=== PATIENT | male | born 1965 | race Caucasian/White ===

== ENCOUNTER 2019-03-25 13:08 | Outpatient (CLI) | payer BC ==
--- NOTE | 2019-03-25 14:49 | MRI ---
EXAM: MRI of the pelvis/prostate without and with contrast HISTORY: Prostate cancer COMPARISON: None TECHNIQUE: Multiplanar multisequence MR images were obtained of the pelvis without and with IV contra st. Evaluation of this exam was performed with a [employer] workstation. FINDINGS: Central gland: Moderate hypertrophy of the central gland consistent with BPH. No suspicious low T2 si gnal lesion is seen. Peripheral zone: No restricted diffusion is seen. No low signal on ADC map. Seminal vesicles: No suspicious abnormality. There is dilatation of the left seminal vesicle. Neurovascular bundles: Intact Pelvic lymph nodes: No pelvic adenopathy Other visualized intrapelvic structures: Unremarkable Osseous structures: No marrow signal abnormality IMPRESSION: PI-RADS Category 2-low likelihood that a clinically significant cancer is present.
== END 2019-03-25 13:09 | disposition home or self-care (01) ==
LOC: TBSIIMAG 13:08
PROVIDERS: ATTEND Urology
DX: C61 Malignant neoplasm of prostate (principal)
CPT/HCPCS: 72197

== ENCOUNTER 2019-12-29 14:26 | Outpatient (CLI) | payer BC ==
[~2019-12-29 14:26] MED LIST: Magnevist 469MG/ML 20 ML VIAL ONE
--- NOTE | 2019-12-29 16:27 | MRI ---
MRI of thebrain with and without contrast: 12/29/2019 COMPARISON:None available HISTORY:Left foot drop TECHNIQUE: Multiplanar multisequence MR imaging of thebrain with and without contrast Findings:The diffusion weighted imaging demonstrates no evidence for acute infarction. The axial grad ient echo imaging demonstrates no evidence for intracranial hemorrhage. Arterial flow voids at the axial level of the skull base appear grossly unremarkable on the T2-weight ed imaging. The visualized paranasal sinuses and mastoid air cells appear grossly unremarkable. Arterial flow voids at the axial level of the skull base appear grossly unremarkable on the T2-weight ed imaging. There is no midline shift or mass effect and no ventricular enlargement is noted. The postcontrast imaging demonstrates no abnormal enhancement within the brain parenchyma. IMPRESSION:Unremarkable contrast enhanced brain MRI.
== END 2019-12-29 14:27 | disposition home or self-care (01) ==
LOC: TBSIIMAG 14:26
PROVIDERS: ATTEND Internal Medicine
DX: M21.372 Foot drop, left foot (principal)
CPT/HCPCS: 70553; 72148; 72158; A9579

== ENCOUNTER 2020-07-13 09:44 | Outpatient (CLI) | payer BC ==
[2020-07-13] MEDS ORDERED: Magnevist 469MG/ML 20 ML VIAL ONE (15:13)
== END 2020-07-13 09:45 | disposition home or self-care (01) ==
LOC: TBSIIMAG 09:44
PROVIDERS: ATTEND Urology
DX: C61 Malignant neoplasm of prostate (principal)
CPT/HCPCS: 72197; A9579

== ENCOUNTER 2022-02-06 08:30 | Outpatient (CLI) | payer BC | END 2022-02-06 08:31 | disposition home or self-care (01) | LOC: RAD 08:30 | PROVIDERS: ATTEND Internal Medicine Critical Care Medicine | DX: R06.00 Dyspnea, unspecified (principal) | CPT/HCPCS: 71046 ==

== ENCOUNTER 2022-10-15 11:10 | Outpatient (CLI) | payer BC | END 2022-10-15 11:11 | disposition home or self-care (01) | LOC: RAD 11:10 | PROVIDERS: ATTEND Internal Medicine Critical Care Medicine | DX: R06.00 Dyspnea, unspecified (principal) | CPT/HCPCS: 71046 ==